=== PATIENT | male | born 1990 | race Caucasian/White ===

== ENCOUNTER 2020-03-19 14:32 | Outpatient (CLI) | payer BC, SELFPAY ==
--- NOTE | ~2020-03-19 | XR_ITS ---
EXAMINATION: XR hand RT min 3V DATE: 03/19/2020 15:02 INDICATION: Right hand injury and pain. TECHNIQUE: 3 views of right hand were obtained. COMPARISON: None. FINDINGS: There is intra-articular fracture of base of fifth metacarpal. A fracture fragment at the p almar and radial side of the bone demonstrates 2 mm displacement. Joint spaces are normal. IMPRESSION: 1. Intra-articular fracture of base of fifth metacarpal. Reviewed, dictated and finalized at location A.
--- NOTE | ~2020-03-19 | XR_ITS ---
EXAMINATION: XR wrist RT min 3V DATE: 03/19/2020 15:03 INDICATION: Right wrist injury and pain. TECHNIQUE: 4 views of right wrist were obtained. COMPARISON: None. FINDINGS: There is a fracture of the radial and palmar base of fifth metacarpal with 2 mm displacemen t. Joint spaces are normal. IMPRESSION: 1. Intra-articular fracture of base of fifth metacarpal. Reviewed, dictated and finalized at location A.
== END 2020-03-19 14:33 | disposition home or self-care (01) ==
PROVIDERS: PCP Internal Medicine; Visit Provider Internal Medicine
DX: S69.91XA Unspecified injury of right wrist, hand and finger(s), initial encounter (principal); S62.316A Displaced fracture of base of fifth metacarpal bone, right hand, initial encounter for closed fracture
CPT/HCPCS: 73110; 73130

== ENCOUNTER 2021-04-27 11:26 | Outpatient (CLI) | payer BC, SELFPAY ==
[2021-04-27 13:50] LABS: Influenza A QL RT-PCR Negative (Negative); Influenza B QL RT-PCR Negative (Negative); SARS-CoV-2 RNA PCR Positive (Negative)
== END 2021-04-27 11:27 | disposition home or self-care (01) ==
LOC: CHSLAB 11:28
PROVIDERS: PCP Internal Medicine; Visit Provider Internal Medicine
DX: U07.1 COVID-19 (principal); J06.9 Acute upper respiratory infection, unspecified
CPT/HCPCS: 87502; C9803; U0003; U0005